=== PATIENT | female | born 1985 | race Caucasian/White ===

== ENCOUNTER → 2019-07-02 08:33 | Outpatient (CLI) | payer OTHER, SELFPAY ==
[2019-07-02 09:03] LABS: Specimen Label NATERA KIT
[2019-07-02 09:37] LABS: Add Manual Diff / Slide Review NO; Appearance Urine UA CLEAR; Basophils Absolute Auto 0 /uL (0-100); Basophils Percent Auto 0.3 % (0-2); Bilirubin Urine UA NEGATIVE (NEGATIVE); Color Urine UA YELLOW; Eosinophils Absolute Auto 0 /uL (0-450); Eosinophils Percent Auto 0.6 % (2-4); Glucose Urine UA NEGATIVE (Negative); Hematocrit 37.1 % (36-46); Ketones Urine UA NEGATIVE (NEGATIVE); Leukocyte Esterase Urine UA NEGATIVE (NEGATIVE); Lymphocytes Absolute Auto 1300 /uL (1100-4500); Lymphocytes Percent Auto 21.3 % (25-40); Mean Corpuscular Hemoglobin 32.1 PG (26-34); Mean Corpuscular Volume 91.7 fL (80-100); Monocytes Absolute Auto 300 /uL (0-900); Monocytes Percent Auto 4.6 % (3-14); Neutrophils Absolute Auto 4500 /uL (1500-7000); Neutrophils Percent Auto 73.2 % (50-75); Nitrite Urine UA NEGATIVE (Negative); Occult Blood Urine UA NEGATIVE (Negative); Platelet Count 182 X10^3/uL (150-400); Protein Urine UA NEGATIVE (Negative); Red Blood Cell Count 4.05 X10^6/uL (4.0-5.2); Red Cell Distribution Width 12.8 % (11.6-14.8); Urobilinogen Urine UA 0.2 E.U./dL (0.2); White Blood Cell Count 6.1 X10^3/uL (4.5-11.0)
[2019-07-02 10:39] LABS: Hepatitis B Surface Antigen NEGATIVE s/c (NEGATIVE); Rubella Antibody IgG 10.4 IU/mL (>15)
[2019-07-02 10:56] LABS: HIV 1 & 2 Ab/Ag 4th Gen Combo NEGATIVE (NEGATIVE); Hep C Virus Ab w/Reflex Quant NEGATIVE s/c (NEGATIVE)
[2019-07-04 19:21] LABS: RPR Screen Nonreactive (Nonreactive)
== END ==
PROVIDERS: Visit Provider Obstetrics & Gynecology
DX: Z34.01 Encounter for supervision of normal first pregnancy, first trimester (principal); Z3A.11 11 weeks gestation of pregnancy
CPT/HCPCS: 36415; 80055; 81003; 86787; 86803; 86850; 86900; 86901; 87086; 87389

== ENCOUNTER → 2019-08-19 10:45 | Outpatient (CLI) | payer OTHER, SELFPAY ==
[2019-08-24 15:06] LABS: AFP, Serum 66.3 ng/mL; Calc Gestational Age 18; Maternal Weight 148 lbs; Number of Fetuses 1; Prev Pregnancies Down Syndrome N
== END ==
PROVIDERS: PCP Specialist; Visit Provider Obstetrics & Gynecology
DX: Z34.02 Encounter for supervision of normal first pregnancy, second trimester (principal); Z3A.18 18 weeks gestation of pregnancy
CPT/HCPCS: 36415; 82105

== ENCOUNTER → 2019-09-01 14:14 | Outpatient (CLI) | payer OTHER, SELFPAY ==
--- NOTE | 2019-09-01 14:15 | DI.US.S_ITS ---
PROCEDURE: US OB >= 14 WEEKS FETUS INDICATIONS: ANATOMY OUTSIDE/PRIOR DATING DATA: Last menstrual period (LMP): 04/15/19. LMP-based estimated date of delivery (LOW): 01/20/20. First dating scan (date and location): 08/01/19, this study. Estimated date of delivery (LOW) from first dating scan: 01/08/20. TECHNIQUE: Real-time scanning was performed of the fetus, with image documentation and biometric measurements. Endovaginal scanning: Not needed COMPARISON: None. FINDINGS: General: A single living intrauterine gestation is present. Presentation: Breech. Placenta: Placental position is anterior, without previa but the inferior margin of the placenta extends within 3 cm of the internal os of the cervical canal.. Amniotic fluid index: 14.6 cm, normal range is 5-24 cm. heart rate: 4.2 beats per minute. Maternal cervical canal: 4.2 cm long. Normal lower limit is 2.5 cm. biometrics: Biparietal diameter: 5.0 cm, 21 weeks 2 days Head circumference: 18.8 cm, 21 weeks 1 day Abdominal circumference: 17.5 cm, 22 weeks 3 days Femur length: 3.6 cm, 21 weeks 2 days Estimated gestational age from initial scan: not applicable. Composite gestational age from present scan: 21 weeks 4 days Estimated weight: 453 g Measurement variability for biometric dating: +/- 7 days from 14 weeks to 15 weeks 6 days gestation, +/- 10 days from 16 weeks to 21 weeks 6 days gestation, +/- 2 weeks from 22 weeks to 27 weeks 6 days gestation, +/- 3 weeks for 28 weeks gestation or later. weight reference: 4500 g or EFW >90/95% is considered macrosomia or large for gestational age. EFW <10% is small for gestational age. EFW 5% or less is considered intra-uterine growth restriction. Anatomic survey: Neuro: Ventricles are non-dilated at less than 10 mm. Cisterna magna is normal at 3-11 mm. Cerebellum is normal in size and morphology. Nuchal skin fold: Normal at less than 6 mm between 14-21 weeks gestational age. Face: Nose and lips, facial profile are normal. Spine: No evidence for spina bifida. Heart: 4-chambered heart is present, with normal ventricular outflow tracts. Diaphragm: Diaphragm is intact. Stomach: Left-sided stomach is present. Kidneys: No hydronephrosis. Normal is less than 5 mm in 2nd trimester, less than 7 mm in 3rd trimester. Cord: 3-vessel cord has orthotopic cord insertion Bladder: Normal in size. Extremities: All 4 extremities identified. IMPRESSION: Estimated gestational age currently is 21 weeks 4 days, and delivery date is projected to be centered on 01/08/20. No anomaly seen. The placental tip extends within 3 cm of the internal os of the cervical canal. Dictated by: Levi Dan M.D. on 09/01/2019 at 16:51 Approved by: Levi Dan M.D. on 09/01/2019 at 16:56
== END ==
PROVIDERS: PCP Specialist; Referring Provider Obstetrics & Gynecology; Visit Provider Obstetrics & Gynecology
DX: Z34.02 Encounter for supervision of normal first pregnancy, second trimester (principal); Z3A.21 21 weeks gestation of pregnancy
CPT/HCPCS: 76811

== ENCOUNTER → 2019-09-16 10:25 | Outpatient (CLI) | payer OTHER, SELFPAY ==
--- NOTE | 2019-09-16 10:26 | DI.US.S_ITS ---
PROCEDURE: US OB FOLLOW UP INDICATIONS: FU TO ASSESS PLACENTA PLACEMENT OUTSIDE/PRIOR DATING DATA: Last menstrual period (LMP): 04/15/19. LMP-based estimated date of delivery (LOW): 01/20/20. First dating scan (date and location): 08/01/19. Estimated date of delivery (LOW) from first dating scan: 01/08/20. TECHNIQUE: Real-time scanning was performed of the fetus, with image documentation. Endovaginal scanning: Not needed COMPARISON: None. FINDINGS: A single living intrauterine gestation is present. Presentation: Vertex. Placenta: Placental position is anterior, without previa. Amniotic fluid index: 20.1 cm, normal range is 5-24 cm. heart rate: 155 beats per minute. Maternal cervical canal: 4.1 cm long. Normal lower limit is 2.5 cm. Estimated gestational age from initial scan: 23 weeks 5 days. IMPRESSION: Placental positioning is anterior, without previa. Normal amniotic fluid volume. The delivery date is projected to be centered on 01/08/20. Dictated by: Levi Dan M.D. on 09/16/2019 at 13:00 Approved by: Levi Dan M.D. on 09/16/2019 at 13:02
== END ==
PROVIDERS: PCP Specialist; Referring Provider Obstetrics & Gynecology; Visit Provider Obstetrics & Gynecology
DX: Z36.2 Encounter for other antenatal screening follow-up (principal); Z3A.23 23 weeks gestation of pregnancy
CPT/HCPCS: 76816